=== PATIENT | female | born 1980 | race African-American/Black ===

== ENCOUNTER → 2017-08-19 | Outpatient (CLI) | payer BC ==
[2017-08-19 12:19] LABS: Basophils # (auto) 0 uL; Basophils % (auto) 0.1 % (0.0-2.0); Eosinophils # (auto) 0 uL; Eosinophils % (auto) 0.6 % (0.0-7.0); Hematocrit 35.2 % (36.0-46.0); Hemoglobin 11.5 g/dL (12.2-16.2); Lymphocytes # (auto) 1.7 uL; Mean Corpuscular Hemoglobin 23.7 pg (28.0-32.0); Mean Corpuscular Hgb Conc. 32.7 g/dL (32.0-36.0); Mean Corpuscular Volume 72.5 fL (80.0-100.0); Mean Platelet Volume 9.8 fL (6.9-10.8); Monocytes # (auto) 0.6 uL; Monocytes % (auto) 8.6 % (0.0-12.0); Neutrophils # (auto) 5.1 uL; Neutrophils % (auto) 67.7 % (37.0-80.0); Nucleated Red Blood Cells % 0.1 %; Platelet Count (auto) 208 10^3/uL (140-450); Red Cell Distribution Width 14.4 % (11.8-14.3); White Blood Cell 7.6 10^3/uL (4.4-10.8)
== END | disposition home or self-care (01) ==
LOC: LAB 11:26
PROVIDERS: ATTEND Obstetrics & Gynecology
DX: Z34.00 Encounter for supervision of normal first pregnancy, unspecified trimester (principal)
CPT/HCPCS: 36415; 80307; 84144; 85025; 86703; 86762; 86850; 86900; 86901; 87086; 87340

== ENCOUNTER → 2017-12-17 | Outpatient (CLI) | payer BC ==
[~2017-12-17] MED LIST: FERR-7 PO; PREN-96 PO
[2017-12-17 09:16] LABS: Basophils # (auto) 0 uL; Basophils % (auto) 0.2 % (0.0-2.0); Mean Corpuscular Hgb Conc. 32.4 g/dL (32.0-36.0); Monocytes # (auto) 0.9 uL; Neutrophils # (auto) 6.5 uL; Platelet Count (auto) 225 10^3/uL (140-450)
[2017-12-17 09:19] LABS: Eosinophils # (auto) 0.1 uL; Eosinophils % (auto) 0.6 % (0.0-7.0); Hematocrit 32.6 % (36.0-46.0); Hemoglobin 10.6 g/dL (12.2-16.2); Lymphocytes # (auto) 1.8 uL; Lymphocytes % (auto) 18.9 % (10.0-50.0); Mean Corpuscular Hemoglobin 23.7 pg (28.0-32.0); Neutrophils % (auto) 70.3 % (37.0-80.0); Red Blood Cells 4.46 10^6/uL (4.0-5.20); Red Cell Distribution Width 15.2 % (11.8-14.3); White Blood Cell 9.3 10^3/uL (4.4-10.8)
[2017-12-17 09:22] LABS: Nucleated Red Blood Cells % 0.1 %
== END | disposition home or self-care (01) ==
LOC: LAB 08:08
PROVIDERS: ATTEND Obstetrics & Gynecology
DX: O99.810 Abnormal glucose complicating pregnancy (principal); Z3A.00 Weeks of gestation of pregnancy not specified
CPT/HCPCS: 36415; 82951; 85025

== ENCOUNTER → 2018-02-04 | Outpatient (CLI) | payer BC ==
[2018-02-04 11:56] LABS: Basophils # (auto) 0 uL; Eosinophils # (auto) 0 uL; Hematocrit 30.6 % (36.0-46.0); Lymphocytes # (auto) 1.6 uL; Mean Corpuscular Hemoglobin 23.3 pg (28.0-32.0); Mean Corpuscular Hgb Conc. 32.7 g/dL (32.0-36.0); Mean Corpuscular Volume 71.2 fL (80.0-100.0); Monocytes # (auto) 0.7 uL; Nucleated Red Blood Cells % 0.2 %
[2018-02-04 11:58] LABS: Basophils % (auto) 0.6 % (0.0-2.0); Eosinophils % (auto) 0.6 % (0.0-7.0); Lymphocytes % (auto) 23.6 % (10.0-50.0); Monocytes % (auto) 10.1 % (0.0-12.0); Neutrophils # (auto) 4.3 uL; Neutrophils % (auto) 65.1 % (37.0-80.0); Platelet Count (auto) 231 10^3/uL (140-450); Red Cell Distribution Width 15.8 % (11.8-14.3); White Blood Cell 6.6 10^3/uL (4.4-10.8)
[2018-02-05 03:09] LABS: RPR Non Reactive (Non Reactive)
== END | disposition home or self-care (01) ==
LOC: LAB 11:37
PROVIDERS: ATTEND Obstetrics & Gynecology
DX: O23.599 Infection of other part of genital tract in pregnancy, unspecified trimester (principal); O09.90 Supervision of high risk pregnancy, unspecified, unspecified trimester; Z3A.00 Weeks of gestation of pregnancy not specified
CPT/HCPCS: 36415; 85025; 86592; 87081

== ENCOUNTER 2018-02-19 12:22 | Observation (INO) | payer BC ==
[2018-02-19] MEDS ORDERED: PREN-96 PO (12:44)
[2018-02-19] MEDS ORDERED: FERR-7 PO (12:44)
[2018-02-19 14:32] LABS: Alcohol, Urine < 3.0 mg/dL (0-5); Amphetamine Screen, Urine NEGATIVE (NEGATIVE); Barbiturate Scree,Urine NEGATIVE (NEGATIVE); Benzodiazephine Screen, Urine NEGATIVE (NEGATIVE); Cannabinoid Screen, Urine NEGATIVE (NEGATIVE); Cocaine Screen, Urine NEGATIVE (NEGATIVE); Opiate Scree,Urine NEGATIVE (NEGATIVE); Phencyclidine Screen, Urine NEGATIVE (NEGATIVE)
[2018-02-19] MEDS ORDERED: LACTATED RINGER'S 1,000 ML IV ONE (15:14)
== END 2018-02-19 17:15 | disposition home or self-care (01) | DRG 782 ==
LOC: LDRP 12:22
PROVIDERS: ADMIT Specialist; ATTEND Specialist
DX: O36.8120 Decreased fetal movements, second trimester, not applicable or unspecified (principal); Z3A.25 25 weeks gestation of pregnancy
CPT/HCPCS: 59025; 76818; 80307; 81002; 96360; G0378

== ENCOUNTER 2018-02-20 10:00 | Observation (INO) | payer BC, MEDICAID | END 2018-02-20 11:10 | disposition home or self-care (01) | DRG 782 | LOC: LDRP 10:00 | PROVIDERS: ADMIT Obstetrics & Gynecology; ATTEND Obstetrics & Gynecology | DX: O36.8130 Decreased fetal movements, third trimester, not applicable or unspecified (principal); Z3A.37 37 weeks gestation of pregnancy | CPT/HCPCS: 59025; 76818; 81002; G0378 ==

== ENCOUNTER 2018-03-09 09:30 | Observation (INO) | payer BC, MEDICAID | END 2018-03-09 11:50 | disposition home or self-care (01) | DRG 566 | LOC: LDRP 09:30 | PROVIDERS: ADMIT Obstetrics & Gynecology; ATTEND Obstetrics & Gynecology | DX: O48.0 Post-term pregnancy (principal); Z3A.40 40 weeks gestation of pregnancy | CPT/HCPCS: 59025; 76818; 81002; G0378 ==

== ENCOUNTER 2018-03-11 10:40 | Observation (INO) | payer MEDICAID | END 2018-03-11 12:30 | disposition home or self-care (01) | DRG 566 | LOC: LDRP 10:40 | PROVIDERS: ADMIT Obstetrics & Gynecology; ATTEND Obstetrics & Gynecology | DX: O48.0 Post-term pregnancy (principal); O09.523 Supervision of elderly multigravida, third trimester; Z3A.40 40 weeks gestation of pregnancy | CPT/HCPCS: 59025; 76818; 81002; G0378 ==

== ENCOUNTER 2018-03-13 06:30 | Inpatient (IN) | payer MEDICAID ==
[2018-03-13] VITALS (7 sets, daily range): BP systolic 117–126; BP diastolic 63–81
[~2018-03-13] VITALS: Ht 170.2 cm; Wt 111.1 kg
[2018-03-13 07:46] LABS: Albumin 2.7 g/dL (3.4-5.0); BUN/Creatinine Ratio 10.5; Calcium 9.2 mg/dL (8.5-10.1); Potassium 4.1 mmol/L (3.5-5.1)
[2018-03-13 07:49] LABS: Bilirubin, Total 0.8 mg/dL (0.2-1.0); INR 0.89 (0.9-1.15); Partial Thromboplastin Time 23.8 sec (22.64-33.71); Prothrombin Time 9.7 sec (9.37-12.3); Total Protein 7.3 g/dL (6.4-8.2)
[2018-03-13 08:05] LABS: Basophils # (auto) 0 uL; Eosinophils # (auto) 0 uL; Eosinophils % (auto) 0.4 % (0.0-7.0); Monocytes # (auto) 0.6 uL; Neutrophils # (auto) 3.9 uL; Nucleated Red Blood Cells % 0.2 %; Red Cell Distribution Width 16.7 % (11.8-14.3)
[2018-03-13 08:09] LABS: Basophils % (auto) 0.4 % (0.0-2.0); Hematocrit 34.3 % (36.0-46.0); Hemoglobin 11.3 g/dL (12.2-16.2); Lymphocytes # (auto) 1.5 uL; Lymphocytes % (auto) 24.6 % (10.0-50.0); Mean Corpuscular Hgb Conc. 32.9 g/dL (32.0-36.0); Monocytes % (auto) 9.9 % (0.0-12.0); Neutrophils % (auto) 64.7 % (37.0-80.0); Platelet Count (auto) 187 10^3/uL (140-450); Red Blood Cells 4.69 10^6/uL (4.0-5.20)
[2018-03-13 08:14] LABS: Mean Corpuscular Volume 73.1 fL (80.0-100.0)
[2018-03-13 08:24] LABS: Urine Bacteria FEW /hpf (None Seen); Urine Blood 2+ /uL (Negative); Urine Specific Gravity 1.018 (1.001-1.035); Urine WBC 3 /hpf (0 - 5)
[2018-03-13] MEDS ORDERED: TETRACAINE 1% INJ 2 ML VIAL IJ ONE (13:08)
[2018-03-13] MEDS ORDERED: fentaNYL CITRATE 100 MCG/2 ML VL ONE (13:39)
[2018-03-13] MEDS ORDERED: MIDAZOLAM HCL 1MG/1ML-2 ML VIAL ONE (13:40)
[2018-03-13] MEDS ORDERED: OXYTOCIN 10 UNIT/ML 10ML VIAL ONE (14:23)
[2018-03-13] MEDS ORDERED: ceFAZolin 1GM VL ONE (14:23)
[2018-03-13] MEDS ORDERED: LACT. RINGERS/OXYTOCIN 20UNITS 1,000 ML IV SCH (14:24)
[2018-03-13] MEDS ORDERED: KETOROLAC TROMETH 30 MG/ML 1ML VIAL IV PRN (14:30)
[2018-03-13] MEDS ORDERED: MORPHINE SULFATE 8mg/ml INJ SDV IV PRN ×2 (14:30→14:45)
[2018-03-13] MEDS ORDERED: ONDANSETRON HCL 4 MG/2 ML VIAL IV PRN (14:30)
[2018-03-13] MEDS ORDERED: LABETALOL HCL 5 MG/ML 4ML SYRINGE IV PRN (14:45)
[2018-03-13] MEDS ORDERED: KETOROLAC TROMETH 30 MG/ML 1ML VIAL IV ONE (14:45)
[2018-03-13] MEDS ORDERED: ONDANSETRON HCL 4 MG/2 ML VIAL IV ONE (14:45)
[2018-03-13] MEDS ORDERED: ePHEDrine SULFATE 50 MG/ML AMP IV PRN (14:45)
[2018-03-13] MEDS ORDERED: MIDAZOLAM HCL 1MG/1ML-2 ML VIAL IV PRN (14:45)
[2018-03-13] MEDS ORDERED: KETOROLAC TROMETH 30 MG/ML 1ML VIAL IV SCH (15:00)
[2018-03-13] MEDS ORDERED: fentaNYL CITRATE 100 MCG/2 ML VL IV ONE (15:00)
[2018-03-13] MEDS ORDERED: MORPHINE SULFATE 8mg/ml INJ SDV IV ONE (16:00)
[2018-03-13] MEDS ORDERED: MORPHINE SULFATE 4 MG/ML SYR/VIAL ONE (19:15)
[2018-03-13 19:54] LABS: Basophils # (auto) 0 uL; Eosinophils # (auto) 0 uL; Neutrophils # (auto) 6.9 uL
[2018-03-13 19:57] LABS: Basophils % (auto) 0.5 % (0.0-2.0); Eosinophils % (auto) 0.3 % (0.0-7.0); Hematocrit 34.2 % (36.0-46.0); Hemoglobin 11.3 g/dL (12.2-16.2); Lymphocytes # (auto) 1.4 uL; Lymphocytes % (auto) 15.2 % (10.0-50.0); Mean Corpuscular Hemoglobin 24.3 pg (28.0-32.0); Mean Corpuscular Hgb Conc. 33.1 g/dL (32.0-36.0); Mean Corpuscular Volume 73.3 fL (80.0-100.0); Monocytes # (auto) 0.8 uL; Monocytes % (auto) 9.1 % (0.0-12.0); Neutrophils % (auto) 74.9 % (37.0-80.0); Nucleated Red Blood Cells % 0.2 %; Platelet Count (auto) 200 10^3/uL (140-450); Red Blood Cells 4.66 10^6/uL (4.0-5.20); Red Cell Distribution Width 16.5 % (11.8-14.3); White Blood Cell 9.3 10^3/uL (4.4-10.8)
[2018-03-13] MEDS: ceFAZolin 1GM/50ML 50 ML IV SCH (21:50)
[2018-03-13 23:09] LABS: Alcohol, Urine < 3.0 mg/dL (0-5); Amphetamine Screen, Urine NEGATIVE (NEGATIVE); Barbiturate Scree,Urine NEGATIVE (NEGATIVE); Benzodiazephine Screen, Urine NEGATIVE (NEGATIVE); Cannabinoid Screen, Urine NEGATIVE (NEGATIVE); Cocaine Screen, Urine NEGATIVE (NEGATIVE); Opiate Scree,Urine NEGATIVE (NEGATIVE); Phencyclidine Screen, Urine NEGATIVE (NEGATIVE)
[2018-03-14] MEDS: KETOROLAC TROMETH 30 MG/ML 1ML VIAL IV SCH ×4 (00:39→17:00)
[2018-03-14 02:54] VITALS: BP 126/73
[2018-03-14] MEDS: ceFAZolin 1GM/50ML 50 ML IV SCH ×2 (05:46→14:00)
[2018-03-14] MEDS: LACTATED RINGER'S 1,000 ML IV SCH ×2 (06:52→14:52)
[2018-03-14 07:05] VITALS: BP 127/78
[2018-03-14 07:06] LABS: Basophils # (auto) 0 uL; Basophils % (auto) 0.2 % (0.0-2.0); Eosinophils # (auto) 0 uL; Eosinophils % (auto) 0.3 % (0.0-7.0); Hematocrit 31.6 % (36.0-46.0); Hemoglobin 10.4 g/dL (12.2-16.2); Lymphocytes # (auto) 1.4 uL; Lymphocytes % (auto) 16.7 % (10.0-50.0); Mean Corpuscular Hemoglobin 24.2 pg (28.0-32.0); Mean Corpuscular Hgb Conc. 32.8 g/dL (32.0-36.0); Mean Corpuscular Volume 73.8 fL (80.0-100.0); Monocytes # (auto) 0.8 uL; Monocytes % (auto) 9.8 % (0.0-12.0); Neutrophils # (auto) 6.1 uL; Nucleated Red Blood Cells % 0.1 %; Platelet Count (auto) 174 10^3/uL (140-450); Red Blood Cells 4.29 10^6/uL (4.0-5.20); Red Cell Distribution Width 16.4 % (11.8-14.3); White Blood Cell 8.3 10^3/uL (4.4-10.8)
[2018-03-14] MEDS ORDERED: BISACODYL 10 MG RECT SUPP PR PRN (08:15)
[2018-03-14] MEDS ORDERED: HYDROcodone-ACET 5/325MG TAB PO PRN ×2 (08:15)
[2018-03-14] MEDS: DOCUSATE CALCIUM 240 MG CAP PO SCH (09:55)
[2018-03-14] MEDS: DOCUSATE SOD 100 MG CAP PO SCH ×2 (09:55→22:05)
[2018-03-14] MEDS: FERROUS SULFATE 325 MG TAB PO SCH ×2 (09:55→22:05)
[2018-03-14] MEDS ORDERED: DOCUSATE CALCIUM 240 MG CAP PO SCH (10:00)
[2018-03-14 11:00] VITALS: BP 133/80
[2018-03-14] MEDS: SIMETHICONE 80 MG CHEWABLE TABLET PO SCH ×3 (12:20→22:05)
[2018-03-14 15:17] VITALS: BP 125/80
[2018-03-14] MEDS: IBUPROFEN 800 MG TAB PO PRN (17:05)
[2018-03-14 19:20] VITALS: BP 126/77
[2018-03-14 23:00] VITALS: BP 116/69
[2018-03-15 03:45] VITALS: BP 134/66
[2018-03-15] MEDS: SIMETHICONE 80 MG CHEWABLE TABLET PO SCH ×4 (06:00→21:32)
[2018-03-15 07:00] VITALS: BP 129/66
[2018-03-15] MEDS: IBUPROFEN 800 MG TAB PO PRN ×2 (07:54→17:45)
[2018-03-15] MEDS: FERROUS SULFATE 325 MG TAB PO SCH ×2 (09:15→21:32)
[2018-03-15] MEDS: DOCUSATE CALCIUM 240 MG CAP PO SCH (09:16)
[2018-03-15] MEDS: DOCUSATE SOD 100 MG CAP PO SCH ×2 (09:16→21:32)
[2018-03-15 11:00] VITALS: BP 122/81
[2018-03-15 15:00] VITALS: BP 122/76
[2018-03-15 18:59] VITALS: BP 119/71
[2018-03-15 23:00] VITALS: BP 129/77
[2018-03-16 03:38] VITALS: BP 110/72
[2018-03-16] MEDS: IBUPROFEN 800 MG TAB PO PRN (05:58)
[2018-03-16] MEDS: SIMETHICONE 80 MG CHEWABLE TABLET PO SCH ×2 (05:58→12:00)
[2018-03-16 07:30] VITALS: BP 125/78
[2018-03-16] MEDS: DOCUSATE CALCIUM 240 MG CAP PO SCH (10:00)
[2018-03-16] MEDS: FERROUS SULFATE 325 MG TAB PO SCH (10:00)
[2018-03-16] MEDS: DOCUSATE SOD 100 MG CAP PO SCH (10:00)
[2018-03-16 11:03] VITALS: BP 130/82
== END 2018-03-16 13:05 | disposition home or self-care (01) | DRG 540 ==
LOC: LDRP 06:30
PROVIDERS: ADMIT Obstetrics & Gynecology; ATTEND Obstetrics & Gynecology
PROC: 10D00Z1 Extraction of Products of Conception, Low, Open Approach (ICD-10-PCS; principal; 2018-03-13 13:23)
DX: O48.0 Post-term pregnancy (principal); E66.01 Morbid (severe) obesity due to excess calories; D64.9 Anemia, unspecified; O99.214 Obesity complicating childbirth; O36.63X0 Maternal care for excessive fetal growth, third trimester, not applicable or unspecified; O99.02 Anemia complicating childbirth; Z37.0 Single live birth; O09.523 Supervision of elderly multigravida, third trimester; Z3A.40 40 weeks gestation of pregnancy; Z83.3 Family history of diabetes mellitus; Z68.38 Body mass index [BMI] 38.0-38.9, adult
CPT/HCPCS: 36415; 51702; 59025; 80053; 80307; 81001; 85025; 85610; 85730; 86850; 86900; 86901; 94760; 94762; 96365; 96366; 96374; J0690; J1885; J2250; J2590